=== PATIENT | male | born 1950 | race Caucasian/White ===

== ENCOUNTER 2018-02-22 11:34 | Inpatient (IN) | payer OTHER ==
[~2018-02-22] VITALS: Ht 162.6 cm; Wt 76.2 kg
[2018-02-22 12:23] LABS: HEMATOCRIT 47.2 % (42.0-54.0); HEMOGLOBIN 16.5 g/dL (13.5-17.5); MCH 31.1 pg (26.0-34.0); MCV 88.9 fL (80.0-100.0); MEAN PLATELET VOLUME 12.2 fL (7.4-10.4); PLATELET COUNT 78 10x3/uL (130-400); RBC 5.31 10x6/uL (4.20-6.10); RDW 12.9 % (11.5-14.5)
[2018-02-22 12:41] LABS: WBC 1.9 10x3/uL (4.8-10.8)
[2018-02-22 12:44] LABS: ALBUMIN 3.6 g/dL (3.4-5.0); ANION GAP 14.5 mmol/L (8-16); BILIRUBIN - TOTAL 0.67 mg/dL (0.2-1.3); CALCIUM 8.1 mg/dL (8.5-10.1); CARBON DIOXIDE 24.7 mmol/L (21.0-32.0); CREATININE - SERUM 1.3 mg/dL (0.6-1.3); POTASSIUM - SERUM 4.2 mmol/L (3.5-5.1); PROTEIN - SERUM 7.1 g/dL (6.4-8.2)
[2018-02-22 12:59] LABS: ANISOCYTOSIS OCC; EOSINOPHILS 2 % (0-7); LYMPHOCYTES 42 % (15-50); MONOCYTES 14 % (2-11); NEUTROPHILS 34 % (40-80); PLATELET ESTIMATE DECREASED; ROULEAUX OCC
[2018-02-22 19:11] LABS: APPEARANCE CLEAR (CLEAR); BILIRUBIN NEGATIVE (NEGATIVE); COLOR YELLOW (YELLOW); GLUCOSE NEGATIVE (NEGATIVE); KETONE SMALL mg/dL (NEGATIVE); NITRITE NEGATIVE (NEGATIVE); PROTEIN NEGATIVE (NEGATIVE); SPECIFIC GRAVITY 1.015 (1.005-1.020); UROBILINOGEN NORMAL (NORMAL)
[2018-02-23 09:50] LABS: INR 1.06 (0.85-1.17); PROTIME 13.4 SECONDS (11.6-15.0)
[2018-02-23 09:51] LABS: APTT 35.6 SECONDS (22.8-39.4)
[2018-02-23] MEDS ORDERED: BAYER CHEWABLE81 MG PO (10:12)
[2018-02-23] MEDS ORDERED: LIPITOR40 MG PO (10:14)
[2018-02-23 10:20] VITALS: BP 111/66; BMI 28.9
[2018-02-23] MEDS ORDERED: TIROSINT88 MCG PO (10:20)
[2018-02-23 13:50] VITALS: Ht 162.6 cm; Wt 76.2 kg
[2018-02-23 19:08] VITALS: BP 115/65
[2018-02-23 20:24] VITALS: BP 112/77
[2018-02-24 00:16] VITALS: BP 132/63
[2018-02-24 05:05] VITALS: BP 126/77
[2018-02-24 06:17] LABS: BASOPHILS 0.4 % (0-2); EOSINOPHILS 0 % (0-7); HEMOGLOBIN 16.8 g/dL (13.5-17.5); IMMATURE GRANULOCYTES 0.4 % (0-5); LYMPHOCYTES 48.4 % (15-50); MCH 30.9 pg (26.0-34.0); MCV 88.4 fL (80.0-100.0); MEAN PLATELET VOLUME 11.6 fL (7.4-10.4); NEUTROPHILS 38.8 % (40-80); PLATELET COUNT 65 10x3/uL (130-400); RBC 5.43 10x6/uL (4.20-6.10)
[2018-02-24 06:25] LABS: WBC 2.5 10x3/uL (4.8-10.8)
[2018-02-24 06:35] LABS: INR 1.04 (0.85-1.17); PROTIME 13.2 SECONDS (11.6-15.0)
[2018-02-24 06:36] LABS: APTT 31.6 SECONDS (22.8-39.4)
[2018-02-24 06:58] LABS: ALBUMIN 3.4 g/dL (3.4-5.0); BILIRUBIN - TOTAL 0.7 mg/dL (0.2-1.3); CALCIUM 7.8 mg/dL (8.5-10.1); CREATININE - SERUM 1.2 mg/dL (0.6-1.3); PROTEIN - SERUM 6.8 g/dL (6.4-8.2)
[2018-02-24 08:15] VITALS: BP 106/79
[2018-02-24 15:25] LABS: SPE - A/G RATIO 1.3 (0.7-1.7); SPE - ALBUMIN 3.5 g/dL (2.9-4.4); SPE - ALPHA-1 GLOBULIN 0.3 g/dL (0.0-0.4); SPE - ALPHA-2 GLOBULIN 0.8 g/dL (0.4-1.0); SPE - BETA GLOBULIN 0.8 g/dL (0.7-1.3); SPE - M-SPIKE Not Observed g/dL (Not Observed); SPE - TOTAL PROTEIN 6.3 g/dL (6.0-8.5)
[2018-02-24 16:25] VITALS: BP 109/72
[2018-02-24 17:58] LABS: APPEARANCE CLEAR (CLEAR); BILIRUBIN NEGATIVE (NEGATIVE); COLOR YELLOW (YELLOW); GLUCOSE NEGATIVE (NEGATIVE); KETONE MODERATE mg/dL (NEGATIVE); NITRITE NEGATIVE (NEGATIVE); PROTEIN TRACE mg/dL (NEGATIVE); SPECIFIC GRAVITY 1.015 (1.005-1.020); UROBILINOGEN NORMAL (NORMAL)
[2018-02-24 21:54] VITALS: BP 110/69
[2018-02-25 01:01] VITALS: BP 122/73
[2018-02-25 04:47] VITALS: BP 134/74
[2018-02-25 07:03] LABS: ALBUMIN 3.3 g/dL (3.4-5.0); ANION GAP 13.3 mmol/L (8-16); BILIRUBIN - TOTAL 0.9 mg/dL (0.2-1.3); CARBON DIOXIDE 24.8 mmol/L (21.0-32.0); CREATININE - SERUM 1.2 mg/dL (0.6-1.3); POTASSIUM - SERUM 4.1 mmol/L (3.5-5.1); PROTEIN - SERUM 6.3 g/dL (6.4-8.2)
[2018-02-25 07:57] VITALS: BP 113/61
[2018-02-25 09:23] LABS: HEMATOCRIT 48.5 % (42.0-54.0); MCH 30.9 pg (26.0-34.0); MCHC 35.1 g/dL (31.0-37.0); PLATELET COUNT 66 10x3/uL (130-400); RBC 5.51 10x6/uL (4.20-6.10); RDW 12.9 % (11.5-14.5); WBC 2.8 10x3/uL (4.8-10.8)
[2018-02-25 09:55] LABS: LYMPHOCYTES 48 % (15-50); MONOCYTES 20 % (2-11); NEUTROPHILS 31 % (40-80)
[2018-02-25 09:56] LABS: PLATELET ESTIMATE DECREASED
[2018-02-25 12:01] VITALS: BP 118/73
[2018-02-25 15:45] LABS: CREATINE KINASE 324 UL (21-232)
[2018-02-25 15:46] LABS: CKMB 1.2 U/L (0.0-3.6)
[2018-02-25 16:02] VITALS: BP 117/69
[2018-02-25 21:03] VITALS: BP 110/70
[2018-02-26 00:58] VITALS: BP 94/64
[2018-02-26 04:55] VITALS: BP 114/68
[2018-02-26 08:02] VITALS: BP 97/61
[2018-02-26 09:18] LABS: ALBUMIN 2.9 g/dL (3.4-5.0); ANION GAP 17.3 mmol/L (8-16); BILIRUBIN - TOTAL 0.92 mg/dL (0.2-1.3); CALCIUM 7.6 mg/dL (8.5-10.1); CARBON DIOXIDE 20.5 mmol/L (21.0-32.0); CREATININE - SERUM 1.1 mg/dL (0.6-1.3); POTASSIUM - SERUM 3.8 mmol/L (3.5-5.1); PROTEIN - SERUM 5.7 g/dL (6.4-8.2)
[2018-02-26 10:36] LABS: BASOPHILS 0.7 % (0-2); EOSINOPHILS 0 % (0-7); HEMATOCRIT 45.2 % (42.0-54.0); HEMOGLOBIN 15.9 g/dL (13.5-17.5); LYMPHOCYTES 46.7 % (15-50); MCH 30.5 pg (26.0-34.0); MCHC 35.2 g/dL (31.0-37.0); MCV 86.8 fL (80.0-100.0); MONOCYTES 18.5 % (2-11); NEUTROPHILS 34.1 % (40-80); PLATELET COUNT 59 10x3/uL (130-400); RBC 5.21 10x6/uL (4.20-6.10); RDW 12.8 % (11.5-14.5); WBC 2.7 10x3/uL (4.8-10.8)
[2018-02-26 11:46] LABS: ALPHA FETOPROTEIN -(TUMOR MRK) 4.1 ng/mL (0.0-8.3); HEPATITIS C ANTIBODY <0.1 (0.0-0.9)
[2018-02-26 13:24] VITALS: BP 110/70
[2018-02-26] MEDS ORDERED: PROTONIX40 MG PO (16:21)
[2018-02-26] MEDS ORDERED: VIBRAMYCIN 100100 MG PO (16:24)
[2018-02-26 16:37] VITALS: BP 114/80
[2018-02-26 22:09] LABS: RMSF IGM 0.97 index (0.00-0.89)
[2018-02-27 07:23] LABS: MYOGLOBIN - SERUM 120 ng/mL (28-72)
[2018-03-01 18:09] LABS: EHRLICHIA CHAFF IGG Negative (Neg:<1:64); EHRLICHIA CHAFF IGM Negative (Neg:<1:20); HGE IGG TITER Negative (Neg:<1:64); HGE IGM TITER Negative (Neg:<1:20)
[2018-03-03 07:31] LABS: F. TULARENSIS - IGG See below: (()); F. TULARENSIS - IGM Negative (())
== END 2018-02-26 19:22 | disposition home or self-care (01) | DRG 855 ==
LOC: D.ER 11:34 → D.MS 18:08 → D.EDHOLD 18:08 → D.MS 02-23 14:46
PROVIDERS: Emergency Medicine; Internal Medicine Hematology & Oncology; Internal Medicine Nephrology; Radiology Vascular & Interventional Radiology
PROC: 0QB33ZX Excision of Left Pelvic Bone, Percutaneous Approach, Diagnostic (ICD-10-PCS; 2018-02-24)
PROC: 07DR3ZX Extraction of Iliac Bone Marrow, Percutaneous Approach, Diagnostic (ICD-10-PCS; principal; 2018-02-24 11:45)
DX: A41.89 Other specified sepsis (principal); B97.89 Other viral agents as the cause of diseases classified elsewhere; D70.9 Neutropenia, unspecified; D69.6 Thrombocytopenia, unspecified; I10 Essential (primary) hypertension; E78.5 Hyperlipidemia, unspecified; E03.9 Hypothyroidism, unspecified